=== PATIENT | male | born 1960 | race Hispanic/Latino ===

== ENCOUNTER 2017-12-27 12:00 | Outpatient (CLI) | payer OTHER | END 2017-12-27 12:01 | disposition home or self-care (01) | LOC: BICCT 12:00 | PROVIDERS: ATTEND Physical Medicine & Rehabilitation | DX: M54.2 Cervicalgia (principal); M46.1 Sacroiliitis, not elsewhere classified; M47.892 Other spondylosis, cervical region | CPT/HCPCS: 72125 ==